=== PATIENT | male | born 1965 | race Caucasian/White ===

== ENCOUNTER 2019-10-12 04:20 | Inpatient (IN) | payer MEDICAID, OTHER ==
[~2019-10-12] VITALS: Ht 182.9 cm; Wt 118.6 kg
--- NOTE | 2019-10-12 04:44 | NUR ---
Patient presents to the ER for evaluation of substernal chest tightness. Patient reports a syncopal episode [employer]. Reports then started to develop chest tightness. Denies cardiac hx. No shortness of breath. Reports ETOH last night. Smokes daily. VSS. Placed on gambling monitor.
[2019-10-12 05:23] LABS: BASOPHILS # (AUTO) 0.09 x10^3/uL (0-0.1); BASOPHILS % (AUTO) 1 % (0-1); EOSINOPHILS # (AUTO) 0.19 x10^3/uL (0-0.4); EOSINOPHILS % (AUTO) 2 % (1-7); LYMPHOCYTES # (AUTO) 1.15 x10^3/uL (1-3.4); LYMPHOCYTES % (AUTO) 12 % (22-44); MD NO; MEAN CORPUSCULAR HEMOGLOBIN 30.7 pg (27.5-34.5); MEAN CORPUSCULAR HGB CONC 33.9 g/dL (33.2-36.2); MEAN CORPUSCULAR VOLUME 90.6 fL (81-97); MEAN PLATELET VOLUME 8.6 fL (7.4-10.4); MONOCYTES # (AUTO) 0.57 x10^3/uL (0.2-0.8); MONOCYTES % (AUTO) 6 % (2-9); NEUTROPHILS # (AUTO) 7.54 x10^3/uL (1.8-6.8); NEUTROPHILS % (AUTO) 79 % (42-75); PLATELET COUNT 243 x10^3/uL (130-400); RED BLOOD COUNT 4.96 x10^6/uL (4.38-5.82); RED CELL DISTRIBUTION WIDTH 13.6 % (9.4-14.8)
[2019-10-12 05:27] LABS: ALANINE AMINOTRANSFERASE 27 U/L (12-78); ALBUMIN 3.3 g/dL (3.4-5.0); ANION GAP 9 mmol/L (5-15); CALCIUM 8.6 mg/dL (8.5-10.1); CHLORIDE 105 mmol/L (98-107); CREATININE 1.01 mg/dL (0.7-1.3)
[2019-10-12 05:32] LABS: ALKALINE PHOSPHATASE 28 U/L (45-117); BILIRUBIN,TOTAL 0.1 mg/dL (0.2-1.0); TROPONIN I < 0.015 ng/mL (0.000-0.045)
--- NOTE | 2019-10-12 05:59 | NUR ---
IV started at this time for CTA. Patient is agreeable with plan of care. No concerns. VSS.
[2019-10-12] MEDS ORDERED: CETI10CA PO (06:14)
[2019-10-12] MEDS ORDERED: OMNIPAQUE 350 MG/ML, 75ML BOTTLE ONE (06:21)
[2019-10-12] MEDS ORDERED: ASPIRIN 81 MG TABLET CHEW ONE (06:36)
[2019-10-12] MEDS ORDERED: ASPIRIN 81 MG TABLET CHEW PO ONE (07:00)
[2019-10-12] MEDS ORDERED: SODIUM CHLORIDE FLUSH 10ML SYR IVF PRN (07:00)
--- NOTE | 2019-10-12 07:02 | NUR ---
Report given Rell TOMAS
--- NOTE | 2019-10-12 07:05 | NUR ---
report from juaquin
--- NOTE | 2019-10-12 07:53 | NUR ---
PT REPOSITIONED FOR COMFORT. VSS. NO OTHER NEEDS AT THIS TIME
[2019-10-12] MEDS ORDERED: ACETAMINOPHEN 325 MG TABLET PO PRN (08:30)
[2019-10-12] MEDS ORDERED: POLYETHYLENE GLYCOL 17 GM PACKET PO PRN (08:30)
[2019-10-12] MEDS ORDERED: DOCUSATE 100 MG CAPSULE PO PRN (08:30)
[2019-10-12] MEDS ORDERED: BISACODYL 10 MG SUPP PR PRN (08:30)
[2019-10-12 08:44] LABS: CHOL/HDL RATIO 3.9; LDL/HDL RATIO 2.3 (0.5-3.0)
--- NOTE | 2019-10-12 09:09 | NUR ---
REPORT TO SARAH BETH
[2019-10-12 09:17] LABS: TROPONIN I < 0.015 ng/mL (0.000-0.045)
[2019-10-12 09:25] VITALS: BP 134/86
[2019-10-12 09:30] VITALS: BP 135/88
[2019-10-12 09:35] VITALS: BP 132/79
[2019-10-12] MEDS: ENOXAPARIN 40 MG/0.4 ML SQ SCH (10:48)
[2019-10-12 11:30] LABS: AMPHETAMINE SCREEN, URINE Negative (Negative); BARBITURATE SCREEN, URINE Negative (Negative); BENZODIAZEPINE SCREEN, URINE Negative (Negative); CANNABINOID SCREEN, URINE Negative (Negative); COCAINE SCREEN, URINE Positive (Negative); METHADONE SCREEN, URINE Negative (Negative); OPIATE SCREEN, URINE Negative (Negative)
[2019-10-12 13:25] VITALS: BP 133/72
[2019-10-12 14:39] LABS: TROPONIN I < 0.015 ng/mL (0.000-0.045)
[2019-10-12 20:04] VITALS: BP 130/75
[2019-10-13 02:10] VITALS: BP 123/78
[2019-10-13 06:08] LABS: BASOPHILS # (AUTO) 0.03 x10^3/uL (0-0.1); BASOPHILS % (AUTO) 0 % (0-1); EOSINOPHILS # (AUTO) 0.32 x10^3/uL (0-0.4); EOSINOPHILS % (AUTO) 4 % (1-7); LYMPHOCYTES # (AUTO) 1.63 x10^3/uL (1-3.4); LYMPHOCYTES % (AUTO) 20 % (22-44); MD NO; MEAN CORPUSCULAR HEMOGLOBIN 30.6 pg (27.5-34.5); MEAN CORPUSCULAR HGB CONC 33.4 g/dL (33.2-36.2); MEAN CORPUSCULAR VOLUME 91.6 fL (81-97); MEAN PLATELET VOLUME 8.8 fL (7.4-10.4); MONOCYTES # (AUTO) 0.67 x10^3/uL (0.2-0.8); MONOCYTES % (AUTO) 8 % (2-9); NEUTROPHILS # (AUTO) 5.62 x10^3/uL (1.8-6.8); NEUTROPHILS % (AUTO) 68 % (42-75); PLATELET COUNT 227 x10^3/uL (130-400); RED CELL DISTRIBUTION WIDTH 13.2 % (9.4-14.8)
[2019-10-13 06:14] LABS: ALBUMIN 3.2 g/dL (3.4-5.0); ANION GAP 7 mmol/L (5-15); CALCIUM 8.6 mg/dL (8.5-10.1); CHLORIDE 106 mmol/L (98-107)
[2019-10-13 06:27] LABS: ALANINE AMINOTRANSFERASE 23 U/L (12-78); ALKALINE PHOSPHATASE 28 U/L (45-117); BILIRUBIN,TOTAL 0.7 mg/dL (0.2-1.0); CREATININE 0.96 mg/dL (0.7-1.3); TOTAL PROTEIN 7.7 g/dL (6.4-8.2)
[2019-10-13 08:29] VITALS: BP 127/79
[2019-10-13] MEDS ORDERED: REGADENOSON 0.4 MG/5 ML SYRINGE ONE (09:22)
[2019-10-13] MEDS: ENOXAPARIN 40 MG/0.4 ML SQ SCH (12:00)
== END 2019-10-13 13:02 | disposition home or self-care (01) | DRG 312 ==
LOC: ED 05:46 → EDIP 06:41 → 5SO 09:17
PROVIDERS: ADMIT Family Medicine; ATTEND Family Medicine
DX: R55 Syncope and collapse (principal); I25.110 Atherosclerotic heart disease of native coronary artery with unstable angina pectoris; F10.10 Alcohol abuse, uncomplicated; F14.10 Cocaine abuse, uncomplicated; F17.200 Nicotine dependence, unspecified, uncomplicated; S09.90XA Unspecified injury of head, initial encounter; Z66 Do not resuscitate; E66.9 Obesity, unspecified; L05.91 Pilonidal cyst without abscess; R00.0 Tachycardia, unspecified; W18.39XA Other fall on same level, initial encounter; Z82.49 Family history of ischemic heart disease and other diseases of the circulatory system; Z83.3 Family history of diabetes mellitus; Z68.35 Body mass index [BMI] 35.0-35.9, adult; Y93.89 Activity, other specified; Y92.89 Other specified places as the place of occurrence of the external cause; Y99.8 Other external cause status
CPT/HCPCS: 36415; 70450; 71046; 71275; 78452; 80053; 80061; 80307; 83036; 83735; 84100; 84443; 84484; 85025; 85379; 93005; 93017; 93306; 99285; G0378; J1650; J2785; Q9967; A9502